=== PATIENT | female | born 2000 ===

== ENCOUNTER 2023-11-29 11:49 | Emergency (ER) | payer OTHER ==
[2023-11-29] MEDS ORDERED: Ibuprofen 200 MG TAB ONE (12:06)
== END 2023-11-29 12:18 | disposition home or self-care (01) ==
LOC: ERS 11:49
DX: S13.4XXA Sprain of ligaments of cervical spine, initial encounter (principal); V89.2XXA Person injured in unspecified motor-vehicle accident, traffic, initial encounter
CPT/HCPCS: 99284; G0390